=== PATIENT | female | born 1930 | race Hispanic/Latino ===

== ENCOUNTER 2019-03-14 08:48 | Observation (INO) | payer OTHER, MEDICARE ==
[~2019-03-14] VITALS: Ht 152.4 cm; Wt 50.3 kg
[~2019-03-14 08:48] MED LIST: BENZ-51 PO; CLOP75TA14 PO; DIGO125T87 PO; DONE10TA43 PO; ESOM40CA PO; FERR325T22 PO; FURO20TA4 PO; HUM10VIA6 SQ; IPRA0.2S54 IH; LEVO100T12 PO; METO-409 PO
[2019-03-14 09:33] LABS: BASOPHILS % (AUTO) 0.6 % (0.0-5.0); CREATININE 1.2 mg/dL (0.5-1.5); EOSINOPHILS % (AUTO) 1.4 % (0.0-8.0); HEMATOCRIT 32.7 % (36-48); LYMPHOCYTES % (AUTO) 31.9 % (21.0-51.0); MEAN CORPUSCULAR HEMOGLOBIN 27.9 pg (27.0-33.0); MEAN CORPUSCULAR HGB CONC 32.2 g/dL (32.0-36.0); MEAN CORPUSCULAR VOLUME 86.5 fL (79-99); MONOCYTES % (AUTO) 7.3 % (3.0-13.0); NEUTROPHILS % (AUTO) 58.8 % (40.0-77.0); PLATELET COUNT (AUTO) 92 K/uL (130-400); POTASSIUM 4.4 mmol/L (3.5-5.1); RED BLOOD CELL COUNT(AUTO) 3.78 MIL/uL (4.00-5.50); RED CELL DISTRIBUTION WIDTH 14.8 % (11.0-15.5); WHITE BLOOD COUNT (AUTO) 6.2 K/uL (4.8-10.8)
[2019-03-14] MEDS ORDERED: TETANUS/DIPHTHERIA TOXOID [ADULT] 0.5 ML VIAL IM ONE (09:50)
[2019-03-14 10:09] LABS: PLATELET MORPHOLOGY COMMENT DECREASED
--- NOTE | 2019-03-14 15:30 | NUR ---
HX OF GERD Addendum: 03/14/19 at 1642 by SOFIA GRULLON RN RN Amended: Links added.
--- NOTE | 2019-03-14 15:30 | NUR ---
RIGHT EYE SWOLLEN CLOSE UNABLE TO ACCESS Addendum: 03/14/19 at 1634 by SOFIA GRULLON RN RN Amended: Links added.
[2019-03-14 16:09] VITALS: BP 124/61
[2019-03-14 19:48] VITALS: BP 118/59
[2019-03-14] MEDS ORDERED: FAMO20TA8 PO (19:59)
[2019-03-14] MEDS ORDERED: LEVO88TA7 PO (19:59)
[2019-03-14] MEDS ORDERED: LISI-617 PO (19:59)
[2019-03-14] MEDS ORDERED: PRAV10TA39 PO (19:59)
[2019-03-14 22:42] LABS: APPEARANCE,URINE Clear (CLEAR); BILIRUBIN,URINE Negative (NEGATIVE); COLOR,URINE Yellow (YELLOW); GLUCOSE, URINE (UA) Negative (NEGATIVE); KETONES,URINE Negative (NEGATIVE); LEUKOCYTE ESTERASE ,URINE Trace (NEGATIVE); NITRATE,URINE Negative (NEGATIVE); OCCULT BLOOD,URINE Trace (NEGATIVE); PROTEIN,URINE Trace mg/dL (NEGATIVE); UROBILINOGEN,URINE 0.2 mg/dL (0.2-1.0)
[2019-03-14 22:58] LABS: RBC,URINE 0-1 /HPF (0-1)
[2019-03-14 22:59] LABS: BACTERIA,URINE Few /HPF (None Seen)
[2019-03-14 23:46] VITALS: BP 119/60
[2019-03-15 04:30] VITALS: BP 119/67
--- NOTE | 2019-03-15 07:30 | NUR ---
DOWN STAIR FOR CT SCAN
[2019-03-15 07:42] VITALS: BP 120/59
--- NOTE | 2019-03-15 07:58 | NUR ---
PATIENT BACK FROM CT SCAN DR PHILLIP ROUNDED ON PATIENT ORDERERS RECEIVED FOR INTERROGATION OF PACE MAKER , AND CBC AND BMP IN AM. ORDERERS PLACED
--- NOTE | 2019-03-15 10:40 | NUR ---
DR WARD IN TO SEE PATIENT NOTES STATES CT OF HEAD/BRAIN HEMATOMA RESOLVING HE IS SIGNING OFF CASE IF NEEDED CAN FOLLOW OUTPATIENT , RENEWED ALL MEDICATIONS EXCEPT PLAVIX ON HOLD.
[2019-03-15 11:13] VITALS: BP 126/60
[2019-03-15] MEDS: PANTOPRAZOLE SODIUM 40 MG TABLET.DR PO SCH (12:48)
[2019-03-15] MEDS: LISINOPRIL 5 MG TABLET PO SCH (12:48)
[2019-03-15 15:54] VITALS: BP 107/55
[2019-03-15] MEDS ORDERED: FUROSEMIDE 20 MG TABLET PO SCH (17:00)
[2019-03-15 19:41] VITALS: BP 119/72
[2019-03-15] MEDS ORDERED: DONEPEZIL HCL 5 MG TAB PO SCH (21:00)
[2019-03-15] MEDS ORDERED: SIMVASTATIN 10 MG TABLET PO SCH (21:00)
[2019-03-15] MEDS ORDERED: FAMOTIDINE 20MG TAB 20 MG TAB PO SCH (21:00)
[2019-03-16 00:16] VITALS: BP 141/76
[2019-03-16] MEDS ORDERED: ACETAMINOPHEN 325 MG TAB ONE (01:52)
[2019-03-16 03:50] VITALS: BP 113/67
[2019-03-16 05:57] LABS: BASOPHILS % (AUTO) 0.8 % (0.0-5.0); EOSINOPHILS % (AUTO) 1.7 % (0.0-8.0); HEMATOCRIT 26.9 % (36-48); MEAN CORPUSCULAR HEMOGLOBIN 28.3 pg (27.0-33.0); MEAN CORPUSCULAR HGB CONC 33.2 g/dL (32.0-36.0); MEAN CORPUSCULAR VOLUME 85.1 fL (79-99); MONOCYTES % (AUTO) 9.3 % (3.0-13.0); NEUTROPHILS % (AUTO) 68.2 % (40.0-77.0); NUCLEATED RED BLOOD CELLS 0.1 % (0.0-0.19); PLATELET COUNT (AUTO) 78 K/uL (130-400); RED BLOOD CELL COUNT(AUTO) 3.17 MIL/uL (4.00-5.50); WHITE BLOOD COUNT (AUTO) 6.5 K/uL (4.8-10.8)
[2019-03-16 06:01] LABS: CREATININE 1.2 mg/dL (0.5-1.5)
[2019-03-16 07:38] VITALS: BP 129/66
[2019-03-16] MEDS: LISINOPRIL 5 MG TABLET PO SCH (09:22)
[2019-03-16] MEDS: PANTOPRAZOLE SODIUM 40 MG TABLET.DR PO SCH (09:22)
[2019-03-16] MEDS: LEVOTHYROXINE 88 MCG TABLET PO SCH ×2 (09:30→10:02)
[2019-03-16 11:33] VITALS: BP 113/71
--- NOTE | 2019-03-16 13:14 | NUR ---
PTS FAMILY REPORTS PT HALLUCINATING AND IS NOT THAT WAY AT HOME. KRAIG, DAUGHTER N LAW REPORTS SON IS REQUESTING [facility]. NOTIFIED DR. PHILLIP WITH NEW ORDERS RECEIVED. STILL PENDING INTEROGATION FROM [facility]. [facility]BI CALLED.
--- NOTE | 2019-03-16 13:43 | NUR ---
PT'S FAMILY REQUESTING SNF PER RN, PT'S FAMILY REQUESTING SNF, WENT TO TALK TO FAMILY AT BEDSIDE. MD ORDER JUST PLACED, [facility] , PT'S INSURANCE NOT IN NETWORK WITH [facility] CALL TO KADIERamon SAURABH, SUPPLIED SOME INFORMATION AND THEN STATED THAT HE IS BUSY AND HE WILL CALL BACK LATER, NO MARLO GIVEN. ORDER FOR PT EVAL PLACED AND WILL CONTINUE TP PREPARE FOR SNF REFERRAL Addendum: 03/16/19 at 1347 by NESTOR CASTILLO RN Amended: Links added.
[2019-03-16 16:00] VITALS: BP 103/50
[2019-03-17] MEDS ORDERED: FUROSEMIDE 20 MG TABLET PO SCH (17:00)
== END 2019-03-16 17:45 | disposition home or self-care (01) ==
LOC: EDH 08:48 → EDHIP 12:30 → 4DH 15:10
PROVIDERS: ADMIT Internal Medicine; ATTEND Internal Medicine
DX: S06.339A Contusion and laceration of cerebrum, unspecified, with loss of consciousness of unspecified duration, initial encounter (principal); R42 Dizziness and giddiness; F03.90 Unspecified dementia, unspecified severity, without behavioral disturbance, psychotic disturbance, mood disturbance, and anxiety; K21.9 Gastro-esophageal reflux disease without esophagitis; I48.91 Unspecified atrial fibrillation; I11.0 Hypertensive heart disease with heart failure; I50.9 Heart failure, unspecified; I25.10 Atherosclerotic heart disease of native coronary artery without angina pectoris; E78.5 Hyperlipidemia, unspecified; Z86.73 Personal history of transient ischemic attack (TIA), and cerebral infarction without residual deficits; F17.200 Nicotine dependence, unspecified, uncomplicated; Z95.810 Presence of automatic (implantable) cardiac defibrillator; Z79.02 Long term (current) use of antithrombotics/antiplatelets; Z79.899 Other long term (current) drug therapy; W01.10XA Fall on same level from slipping, tripping and stumbling with subsequent striking against unspecified object, initial encounter; Y93.01 Activity, walking, marching and hiking; Y92.480 Sidewalk as the place of occurrence of the external cause
CPT/HCPCS: 36415 ×2; 70450 ×2; 70486; 73110; 73562 ×2; 80048 ×2; 81001; 82948 ×8; 84484; 85025 ×2; 90714; 93005; 97039; 97161; 99284; G0378 ×53; G8978; G8979; G8980; G8981; G8982; G8983

== ENCOUNTER 2019-05-22 21:21 | Observation (INO) | payer OTHER, MEDICARE ==
[~2019-05-22] VITALS: Ht 154.9 cm; Wt 50.5 kg
[~2019-05-22 21:21] MED LIST changes: -BENZ-51 PO; -DIGO125T87 PO; +FAMO20TA8 PO; -FERR325T22 PO; -HUM10VIA6 SQ; -IPRA0.2S54 IH; -LEVO100T12 PO; +LEVO88TA7 PO; +LISI-617 PO; -METO-409 PO; +PRAV10TA39 PO
[2019-05-22 21:52] LABS: BASOPHILS % (AUTO) 0.5 % (0.0-5.0); EOSINOPHILS % (AUTO) 0.8 % (0.0-8.0); HEMATOCRIT 37.2 % (36-48); LYMPHOCYTES % (AUTO) 15.5 % (21.0-51.0); MEAN CORPUSCULAR HGB CONC 29.6 g/dL (32.0-36.0); MEAN CORPUSCULAR VOLUME 84.5 fL (79-99); PLATELET COUNT (AUTO) 118 K/uL (130-400); RED CELL DISTRIBUTION WIDTH 14.3 % (11.0-15.5)
[2019-05-22 22:13] LABS: POTASSIUM 4.6 mmol/L (3.5-5.1)
[2019-05-22 22:14] LABS: CREATININE 1.6 mg/dL (0.5-1.5)
[2019-05-22 22:19] LABS: B-TYPE NATRIURETIC PEPTIDE 1160 pg/mL (0-100)
[2019-05-22 22:20] LABS: ALBUMIN 3.6 g/dL (3.5-5.0); BILIRUBIN,TOTAL 0.6 mg/dL (0.2-1.0); INR 1.09 (0.85-1.15); PARTIAL THROMBOPLASTIN TIME 25.4 SEC (26.3-35.5); PROTHROMBIN TIME 11.4 SEC (9.6-11.6); TOTAL PROTEIN, SERUM 6.9 g/dL (6.0-8.3)
[2019-05-23 00:21] LABS: APPEARANCE,URINE Clear (CLEAR); BILIRUBIN,URINE Negative (NEGATIVE); COLOR,URINE Yellow (YELLOW); GLUCOSE, URINE (UA) Negative (NEGATIVE); KETONES,URINE Negative (NEGATIVE); LEUKOCYTE ESTERASE ,URINE Small (NEGATIVE); NITRATE,URINE Negative (NEGATIVE); OCCULT BLOOD,URINE Trace (NEGATIVE); PROTEIN,URINE POS 2+ mg/dL (NEGATIVE)
[2019-05-23 00:30] LABS: BACTERIA,URINE Few /HPF (None Seen); RBC,URINE 0-1 /HPF (0-1)
[2019-05-23 00:31] LABS: MUCUS,URINE Few LPF (None Seen); SQUAMOUS EPITHELIAL CELL,UR Few /HPF (0-2)
[2019-05-23] MEDS ORDERED: FUROSEMIDE 10 MG/ML 4ML VIAL ONE (03:39)
[2019-05-23 03:55] VITALS: BP 136/76
--- NOTE | 2019-05-23 04:00 | NUR ---
ADMIT PT ADMITTED TO ROOM 330, AAOX3. ADMISSION CARE DONE. ADMISSION DATA BASE COMPLETED. HOME MEDS UPDATED AND CONTINUED. PLACED PT IN BED COMFORTABLY. ORIENTED TO ROOM AND UNIT. FAMILY STAYING WITH PT. IN FOR MORE CARE AND MANAGEMENT. Addendum: 05/23/19 at 0441 by GERARDO BONILLA RN RN Amended: Links added.
[2019-05-23 05:11] LABS: HEMATOCRIT 34.7 % (36-48); MEAN CORPUSCULAR HEMOGLOBIN 25.2 pg (27.0-33.0); PLATELET COUNT (AUTO) 104 K/uL (130-400); RED BLOOD CELL COUNT(AUTO) 4.13 MIL/uL (4.00-5.50); RED CELL DISTRIBUTION WIDTH 14.3 % (11.0-15.5); WHITE BLOOD COUNT (AUTO) 5.5 K/uL (4.8-10.8)
[2019-05-23 05:36] LABS: ALBUMIN 3.3 g/dL (3.5-5.0); BILIRUBIN,TOTAL 0.6 mg/dL (0.2-1.0); CREATININE 1.3 mg/dL (0.5-1.5); POTASSIUM 4.3 mmol/L (3.5-5.1); TOTAL PROTEIN, SERUM 6.4 g/dL (6.0-8.3)
[2019-05-23] MEDS: LEVOTHYROXINE 88 MCG TABLET PO SCH (05:45)
[2019-05-23] MEDS: IPRATROPIUM/ALBUTEROL SULFATE 3 ML SOLUTION IH SCH ×3 (06:28→21:12)
[2019-05-23 08:00] VITALS: BP 127/75
[2019-05-23] MEDS ORDERED: FUROSEMIDE 20 MG TABLET PO SCH (08:00)
[2019-05-23] MEDS: LISINOPRIL 5 MG TABLET PO SCH (08:49)
[2019-05-23] MEDS: PANTOPRAZOLE SODIUM 40 MG TABLET.DR PO SCH (08:49)
[2019-05-23 11:32] VITALS: BP 120/68
[2019-05-23] MEDS: FUROSEMIDE 10 MG/ML 4ML VIAL IV SCH ×2 (11:38→20:52)
--- NOTE | 2019-05-23 14:43 | NUR ---
RD NOTIFICATION PO INTAKE 0% AND HAS POOR APPETITE FOR SEVERAL DAYS NOW, PER FAMILY MEMBER. LABS REVIEWED. MEDS REVIEWED. SKIN IS INTACT. NO COMPLAINTS OF HAVING CHEWING OR SWALLOWING DIFFICULTIES, N/V/D. LBM: 05/22/19 NOTED. JAMAR RECOMMENDS AN APPETITE STIMULANT IF MEDICALLY FEASIBLE FLUID RESTRICTION 1200ML/D ENSURE BID Addendum: 05/23/19 at [address] Amended: Links added.
[2019-05-23 16:00] VITALS: BP 112/62
[2019-05-23 19:26] VITALS: BP 126/60
--- NOTE | 2019-05-23 20:55 | NUR ---
MEDS SHIFT ASSESSMENT DONE, PLEASE REFER TO CHART. DUE MEDS ADMINISTERED, TOLERATED WELL. KEPT RESTED AND COMFORTABLE. FAMILY WILL STAY WITH PT TONIGHT. CALL LIGHT WITHIN REACH. ENCOURAGED TO REST AND SLEEP. WILL MONITOR PT. Addendum: 05/24/19 at 0008 by GERARDO BONILLA RN RN Amended: Links added.
[2019-05-23] MEDS ORDERED: DONEPEZIL HCL 5 MG TAB PO SCH (21:00)
[2019-05-23] MEDS ORDERED: FAMOTIDINE 20MG TAB 20 MG TAB PO SCH (21:00)
[2019-05-23] MEDS ORDERED: ***HM***Pravastatin Sodium 10 MG PO SCH (21:00)
[2019-05-23 23:07] VITALS: BP 117/61
--- NOTE | 2019-05-24 02:00 | NUR ---
ROUNDS PT RESTING WELL, FAIRLY ASLEEP WITH RESPIRATIONS EVEN AND UNLABORED. NO NOTED DISTRESS. KEPT UNDISTURBED FOR NOW WILL MONITOR PT. CALL LIGHT WITHIN REACH.
[2019-05-24 03:20] VITALS: BP 138/75
[2019-05-24] MEDS: FUROSEMIDE 10 MG/ML 4ML VIAL IV SCH ×2 (03:33→09:59)
[2019-05-24] MEDS ORDERED: ACET-2247 PO (03:38)
[2019-05-24] MEDS ORDERED: ACETAMINOPHEN 325 MG TAB ONE (03:39)
--- NOTE | 2019-05-24 03:41 | NUR ---
PAIN PT COMPLAINTS OF PAINS TO LEFT SIDE OF HER FACE. REQUESTED WARM PACK, PROVIDED. ALREADY PAGED DR BARKSDALE, COUNSELOR/ART THERAPIST MD FOR DR PHILLIP, VIA ANSWERING SERVICE. MEDICATED PT WITH TYLENOL PO. KEPT RESTED IN BED WITH HOB ELEVATED. ENCOURAGED TO BE CALM AND RELAX. WILL RE-ASSESS PT. Addendum: 05/24/19 at 0516 by GERARDO BONILLA RN RN Amended: Links added.
[2019-05-24] MEDS ORDERED: ACETAMINOPHEN 325 MG TAB PO PRN (03:45)
--- NOTE | 2019-05-24 04:00 | NUR ---
MD DR BARKSDALE CALLED BACK AND INFORMED OF PT'S EPISODE OF PAINS ON HER HEAD WITH EPISODES OF ST NON-SUSTAINING. PT IS ALREADY ASLEEP AT THIS TIME WITH HR ON THE 80'S. NO ORDERS GIVEN AT THIS TIME.
[2019-05-24 05:39] LABS: BASOPHILS % (AUTO) 0.4 % (0.0-5.0); EOSINOPHILS % (AUTO) 1.1 % (0.0-8.0); HEMATOCRIT 31.7 % (36-48); LYMPHOCYTES % (AUTO) 9.1 % (21.0-51.0); MEAN CORPUSCULAR HEMOGLOBIN 24.5 pg (27.0-33.0); MEAN CORPUSCULAR HGB CONC 29.7 g/dL (32.0-36.0); MEAN CORPUSCULAR VOLUME 82.8 fL (79-99); MONOCYTES % (AUTO) 8.5 % (3.0-13.0); NEUTROPHILS % (AUTO) 80.5 % (40.0-77.0); PLATELET COUNT (AUTO) 95 K/uL (130-400); RED BLOOD CELL COUNT(AUTO) 3.83 MIL/uL (4.00-5.50); RED CELL DISTRIBUTION WIDTH 14.4 % (11.0-15.5); WHITE BLOOD COUNT (AUTO) 5.6 K/uL (4.8-10.8)
[2019-05-24] MEDS: LEVOTHYROXINE 88 MCG TABLET PO SCH (05:42)
[2019-05-24 06:00] LABS: BILIRUBIN,TOTAL 0.7 mg/dL (0.2-1.0); CREATININE 1.6 mg/dL (0.5-1.5); POTASSIUM 3.8 mmol/L (3.5-5.1)
--- NOTE | 2019-05-24 08:08 | NUR ---
INITIAL MET W PT, FAMILY MEMBERS AT BEDSIDE, L/W GRANDSON, HAS PROVIDERS 36 HR+/WK, USES A RW, HOME SAFE AND ACCESSIBLE DCP PLAN HOME MET W DR. PRASAD, SENDING PT HOME, DNM IQ FOR AFIB OR CHF, ROLLING TO OBS, AND DISCHARGING.
[2019-05-24 08:12] VITALS: BP 132/63
[2019-05-24] MEDS: PANTOPRAZOLE SODIUM 40 MG TABLET.DR PO SCH (09:59)
[2019-05-24] MEDS: LISINOPRIL 5 MG TABLET PO SCH (09:59)
== END 2019-05-24 10:50 | disposition home or self-care (01) ==
LOC: EDH 21:21 → INTOOBSV 22:41 → EDHIP 22:41 → 3AH 05-23 02:56
PROVIDERS: ADMIT Internal Medicine; ATTEND Internal Medicine
DX: J96.91 Respiratory failure, unspecified with hypoxia (principal); I11.0 Hypertensive heart disease with heart failure; I50.43 Acute on chronic combined systolic (congestive) and diastolic (congestive) heart failure; I25.10 Atherosclerotic heart disease of native coronary artery without angina pectoris; E03.9 Hypothyroidism, unspecified; E88.09 Other disorders of plasma-protein metabolism, not elsewhere classified; D64.9 Anemia, unspecified; K21.9 Gastro-esophageal reflux disease without esophagitis; E78.5 Hyperlipidemia, unspecified; F02.80 Dementia in other diseases classified elsewhere, unspecified severity, without behavioral disturbance, psychotic disturbance, mood disturbance, and anxiety; G30.9 Alzheimer's disease, unspecified; I48.91 Unspecified atrial fibrillation; Z91.81 History of falling; Z95.0 Presence of cardiac pacemaker; Z79.899 Other long term (current) drug therapy; Z79.02 Long term (current) use of antithrombotics/antiplatelets
CPT/HCPCS: 36415 ×3; 71045; 71250; 80053 ×3; 81001; 82550; 82948 ×5; 83605; 83880; 84484; 85025 ×2; 85027; 85610; 85730; 87040 ×2; 87804 ×2; 93005; 94640 ×3; 94664; 96374; 96376 ×2; 99284; G0378 ×3; J1940 ×5